=== PATIENT | female | born 1995 | race Two or more races ===

== ENCOUNTER 2019-09-22 01:17 | Emergency (ER) | payer OTHER ==
[~2019-09-22] VITALS: Ht 157.5 cm; Wt 72.6 kg
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
--- NOTE | 2019-09-22 02:05 | NUR ---
PT AMBULATED WITH ASSISTANCE TO THE BATHROOM. URINE SAMPLE OBTAINED.
--- NOTE | 2019-09-22 02:14 | NUR ---
PT GOT UP FROM THE BED AND WALKED ACROSS THE ROOM. PT WAS ATAXIC AND AA&O X1. PT C/O LOWER BACK PAIN AND HAS A RED TOSHIA ON THE MID LOWER BACK. PT IS ON 2L O2 PRECAUTION. PT WILL CONTINUE TO BE MONITORED.
--- NOTE | 2019-09-22 02:52 | NUR ---
PT REC'D MULT WARM BLANKETS. PT APPEARS TO BE RESTING COMFORTABLY.
--- NOTE | 2019-09-22 03:23 | NUR ---
PT APPEARS TO BE SLEEPING SOUNDLY. VSS. WILL CONTINUE TO MONITOR THE PT.
--- NOTE | 2019-09-22 04:17 | NUR ---
DR OLSEN IS AT THE BEDSIDE.
--- NOTE | 2019-09-22 04:20 | NUR ---
DR OLSEN IS AT THE BEDSIDE SPEAKING TO THE PT. PT IS NOT ANSWERING QUESTIONS. NODDING HER HEAD TO YES AND NO QUESTIONS.
--- NOTE | 2019-09-22 05:09 | NUR ---
PATIENT GOT UP AND WALKED TO THE BATHROOM WITH STEADY GAIT, IN NO ACUTE DISTRESS, URINE COLLECTED.
--- NOTE | 2019-09-22 05:22 | NUR ---
PATIENT LEFT FOR THE CT EXAM .
--- NOTE | 2019-09-22 05:54 | NUR ---
PT RETURNED FROM CT.
[2019-09-22 07:20] LABS: BASOPHILS # (AUTO) 0.1 /CMM (0.0-0.2); BASOPHILS % (AUTO) 1.2 % (0.0-2.0); EOSINOPHILS % (AUTO) 0.2 % (0.0-6.0); HEMATOCRIT 39 % (33-45); HEMOGLOBIN 13.5 g/dL (11.5-14.8); LYMPHOCYTES # (AUTO) 2.7 /CMM (0.8-4.8); LYMPHOCYTES % (AUTO) 42.3 % (20.0-44.0); MEAN CORPUSCULAR HGB CONC 35 g/dl (31.0-36.0); MEAN CORPUSCULAR VOLUME 86 fL (82-100); MONOCYTES # (AUTO) 0.2 /CMM (0.1-1.30); MONOCYTES % (AUTO) 3.6 % (2.0-12.0); NEUTROPHILS # (AUTO) 3.4 /CMM (1.8-8.9); NEUTROPHILS % (AUTO) 52.7 % (43.0-81.0); PLATELET COUNT (AUTO) 322 /CMM (150-450); RED BLOOD CELL COUNT(AUTO) 4.53 MIL/uL (4.0-5.2); WHITE BLOOD COUNT (AUTO) 6.4 K/uL (4.3-11.0)
[2019-09-22 07:23] LABS: CALCIUM, SERUM 8.5 mg/dL (8.5-10.1); CREATININE 0.6 mg/dL (0.6-1.3); POTASSIUM 4.2 mmol/L (3.5-5.1)
[2019-09-22 07:28] LABS: SALICYLATE 1.4 mg/dL (2.8-20.0)
--- NOTE | 2019-09-22 07:29 | NUR ---
REPORT GIVEN TO ARMANDO RHODES FOR [facility].
--- NOTE | 2019-09-22 07:30 | NUR ---
REPORT RECEIVED FROM SHAHBAZ JOHNSON FOR [facility]
[2019-09-22 08:49] VITALS: BP 118/74
--- NOTE | 2019-09-22 08:49 | NUR ---
Patient discharged to home in stable condition. Written and verbal after care instructions given. Patient verbalizes understanding of instruction.IV removed. Catheter intact and site benign. Pressure and 4x4 applied to site. No bleeding noted.
== END 2019-09-22 08:50 | disposition home or self-care (01) ==
LOC: ER 01:19
DX: S00.81XA Abrasion of other part of head, initial encounter (principal); R41.82 Altered mental status, unspecified; F10.129 Alcohol abuse with intoxication, unspecified; F12.10 Cannabis abuse, uncomplicated; Y90.7 Blood alcohol level of 200-239 mg/100 ml; X58.XXXA Exposure to other specified factors, initial encounter; Y93.89 Activity, other specified; Y92.89 Other specified places as the place of occurrence of the external cause; Y99.8 Other external cause status
CPT/HCPCS: 36415; 70450; 70486; 73560 ×2; 80048; 80305; 80307; 80329; 84703; 85025; 99284; G0480